=== PATIENT | female | born 1985 | race Caucasian/White ===

== ENCOUNTER 2017-07-07 01:30 | Emergency (ER) | payer SELFPAY ==
[~2017-07-07] VITALS: Ht 170.2 cm; Wt 65.0 kg
[~2017-07-07 01:30] MED LIST: BACT800T5 PO; CEPH-460 PO; CLIN150 PO
[2017-07-07 01:48] VITALS: BP 127/87; PULSE 77; RESP 18; TEMP 98; O2SAT 100
--- NOTE | 2017-07-07 04:31 | PD ---
HPI . Overdose Chief Complaint: OD/ Ingestion Time Seen by Provider: 04:26 Travel History International Travel<30 days: No Contact w/Intl Traveler<30days: No Traveled to known affect area: No History of Present Illness HPI Patient presents with probable overdose, having received Narcan 2 mg IV push, patient is awake and alert, advocating for herself. Patient refuses further evaluation and refuses further medications. At presentation, patient is gathering her clothes and is preparing to leave. Patient denies homicidal or suicidal ideations. Patient notes that her overdose was an accident she thought she was injecting a different medication/drug than the one that she was given. 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, KIDNEY FUNCTION RETURNED) Schizophrenia: Yes (MILD) Tetanus Vaccination: Unknown ?: Not : 2 Para: 2 Miscarriage: 0 : 0 Social History Alcohol Use: No Tobacco Use: Yes Substance Use: Yes (POLY SUBSTANCE ABUSE) Allergies-Medications (Allergen,Severity, Reaction): Coded Allergies: codeine (Unverified Allergy, Mild, ITCHING, 12/15/16) vancomycin (Unverified Allergy, Mild, 06/10/17) Reported Meds & Prescriptions Reported Meds & Active Scripts Active Cleocin (Clindamycin HCl) 150 Mg Cap 300 Mg PO Q8 Keflex (Cephalexin) 500 Mg Cap 500 Mg PO Q12H 10 Days Bactrim DS (Sulfamethoxazole-Trimethoprim) 800-160 Mg Tab 1 Tab PO BID 10 Days Narrative Medication Allergies and medications reviewed Review of Systems ROS Limitations: Uncooperative Psychiatric: Positive: Substance Abuse, No: Suicidal Ideations, Homicidal Ideation Physical Exam Exam Limitations: Uncooperative, Refused Narrative Patient refused medical examination. Patient is advocating for herself, appears in no acute distress. Patient left without full evaluation/left without being seen Data Data Last Documented VS Vital Signs Date Time Temp Pulse Resp B/P (MAP) Pulse Ox O2 Delivery O2 Flow Rate FiO2 07/07/17 01:48 98.0 77 18 127/87 (100) 100 MDM Medical Decision Making Medical Screen Exam Complete: Yes Emergency Medical Condition: Yes Medical Record Reviewed: Yes Differential Diagnosis Accidental drug overdose Narrative Course See narrative above Diagnosis Primary Impression: Polysubstance overdose Qualified Codes: T50.901A - Poisoning by unspecified drugs, medicaments and biological substances, accidental (unintentional), initial encounter Patient Instructions: Adult Overdose (ED), General Instructions Additional Instructions: Follow-up with Suboxone clinic. Return for worsening. Recommend drug rehabilitation program. Disposition: 07 AGAINST MEDICAL ADVICE Condition: Stable Gordy Aguilar MD Jul 07, 2017 04:31
== END 2017-07-07 02:02 | disposition left against medical advice (07) ==
LOC: NEDAMB 01:50
DX: T50.901A Poisoning by unspecified drugs, medicaments and biological substances, accidental (unintentional), initial encounter (principal); F31.9 Bipolar disorder, unspecified; F43.10 Post-traumatic stress disorder, unspecified; Z72.0 Tobacco use
CPT/HCPCS: 99282